=== PATIENT | female | born 1980 | race Caucasian/White ===

== ENCOUNTER 2016-10-28 08:22 | Outpatient (CLI) | payer MEDICARE, MEDICAID ==
[~2016-10-28] VITALS: Ht 157.5 cm; Wt 86.9 kg
[~2016-10-28 08:22] MED LIST: ALPR1T PO; ASP81TEC PO; BUME1TAB4 PO; CALC-250 PO; CIPR500T4 PO; CYCL10TA9 PO; DIAZ-345 PO; DILT240C PO; DIPH25TA65 PO; DOXY100C2 PO; FERR-57 PO; FURO40TA4 PO; GBPN300C PO; INSU100I14 SQ; INSU300I SQ; LEVE1U SQ; LISI20TA PO; METF750T2 PO; OMEP40CA36 PO; OXYC-12 PO; OXYC-197 PO; PRAV40TA2 PO; SULF1TAB35 PO
[2016-10-28] MEDS ORDERED: LISI10TA2 PO (08:28)
[2016-10-28] MEDS ORDERED: BETA15CR37 TP (08:28)
[2016-10-28] MEDS ORDERED: INSU100I32 SQ (08:28)
== END 2016-10-28 08:41 ==
LOC: PREOP 08:22
PROVIDERS: ATTEND Orthopaedic Surgery
DX: Z01.818 Encounter for other preprocedural examination (principal); M65.331 Trigger finger, right middle finger; M65.351 Trigger finger, right little finger

== ENCOUNTER 2016-11-03 07:21 | Day surgery (SDC) | payer MEDICARE, MEDICAID ==
--- NOTE | 2016-10-26 08:26 | HISTORY AND PHYSICAL ---
DATE OF ADMISSION: 11/03/2016 Outpatient surgery for right long finger and small finger trigger releases. HISTORY: The patient is a 36-year-old, [id number] female with complaints of right long finger and small finger catching and locking. She reports this has been progressive in nature. She cannot undergo injections due to labile blood glucose. She reported activity limitations because of the hand and due to this and failure to improve with conservative measures the patient has elected to proceed with surgical intervention. REVIEW OF SYSTEMS: No chest pain, no shortness of breath. No dysuria. PAST MEDICAL HISTORY: 1. Diabetes mellitus. 2. Hypertension. 3. Retinopathy. 4. Neuropathy. 5. Nephropathy. PAST SURGICAL HISTORY: 1. Breast reduction. 2. . 3. Eye. 4. Appendectomy. 5. Shoulder manipulation. 6. Carpal tunnel release. FAMILY HISTORY: Significant for hypertension, alcoholism, diabetes coronary artery disease. MEDICATIONS: 1. Gabapentin. 2. Pravastatin. 3. Cardizem. 4. Bumetadine. 5. Cyclobenzaprine. 6. Alprazolam. 7. NovoLog. 8. Flonase. 9. Aspirin. 10. Benadryl. ALLERGIES: HYDROCODONE SOCIAL HISTORY: The patient drinks alcohol occasionally. She denies tobacco use. PHYSICAL EXAMINATION: The patient is well-developed, well-nourished, in no acute distress. HEENT: Normocephalic, atraumatic. Pupils are equal, round, and reactive, oropharynx is clear. NECK: Supple. No lymphadenopathy. LUNGS: Clear to auscultation bilaterally. HEART: Regular rate and rhythm. ABDOMEN: Soft, nontender, nondistended. EXTREMITY EXAM: The right hand demonstrates tenderness over A1 pulleys on her right long and small fingers. She can demonstrate active triggering. She has full MCP, DIP and PIP flexion and extension. IMPRESSION: Right long finger and small finger trigger fingers. PLAN: Right long finger and small finger A1 estrella releases. The risks, benefits, options, ramifications and recovery were discussed in length with the patient and she understands and wishes to proceed. Job ID: [id number] Dictated Date: 10/25/2016 15:14:27 Rail Car Loader Date: 10/26/2016 08:16:07/vasyl
[~2016-11-03] VITALS: Ht 157.5 cm; Wt 86.9 kg
[~2016-11-03 07:21] MED LIST changes: +BETA15CR37 TP; +INSU100I32 SQ; +LISI10TA2 PO
--- NOTE | 2016-11-03 07:30 | Progress Note-Pre Operative ---
Pre-Operative Progress Note H&P Reviewed The H&P was reviewed, patient examined and no changes noted. Date Seen by Provider: Nov 03, 2016 Time Seen by Provider: : Date H&P Reviewed: Nov 03, 2016 Time H&P Reviewed: : Pre-Operative Diagnosis: right long and small finger trigger fingers JOSE M ROBINS MD Nov 03, 2016 07:30
--- NOTE | 2016-11-03 07:31 | Progress Note-Post Operative ---
Post-Operative Progess Note Surgeon (s)/Chief Digital Officer (s) Surgeon JOSE M ROBINS MD Chief Digital Officer: Jerrell Keating Pre-Operative Diagnosis right long and small finger trigger fingers Post-Operative Diagnosis right long and small finger trigger fingers Procedure & Operative Findings Date of Procedure 11/03/16 Procedure Performed/Findings right long and small finger A1 estrella releases Anesthesia Type MAC plus local Estimated Blood Loss Estimated blood loss (mL): minimal Specimens/Packing Specimens Removed none Packing: none JOSE M ROBINS MD Nov 03, 2016 07:31
[2016-11-03 07:50] VITALS: BP 121/81
[2016-11-03] MEDS ORDERED: fentaNYL INJECTION 100 MCG/2 ML AMP ONE (08:12)
[2016-11-03] MEDS ORDERED: PROPOFOL INJECTION 50 ML IV ONE (08:12)
[2016-11-03] MEDS ORDERED: MIDAZOLAM 2 MG/2 ML (VERSED) VIAL ONE (08:14)
[2016-11-03] MEDS ORDERED: FAMOTIDINE 20MG/2ML IV (PEPCID) IV ONE (08:15)
[2016-11-03] MEDS ORDERED: SCOPOLAMINE 1.5 MG (TRANSDERM-SCOP) PATCH TOP ONE (08:15)
[2016-11-03] MEDS ORDERED: ceFAZolin 1 GM/NS 50 ML IVPB IV ONE ×2 (08:15)
[2016-11-03] MEDS ORDERED: ONDANSETRON 4 MG/2 ML (SDV) Z0FRAN IV ONE (08:15)
[2016-11-03] MEDS ORDERED: BUPIVACAINE 0.5% 30 ML (SENSORCAINE) VIAL ONE (08:32)
[2016-11-03] MEDS ORDERED: LIDOCAINE 1% INJ 20 ML (XYLOCAINE) VIAL ONE (08:32)
[2016-11-03] MEDS: LACTATED RINGERS 1,000 ML IV PRN ×2 (08:44→09:04)
[2016-11-03] MEDS ORDERED: ONDANSETRON 4 MG/2 ML (SDV) Z0FRAN ONE (08:55)
[2016-11-03] MEDS ORDERED: LACTATED RINGERS 1,000 ML IV ONE (09:27)
[2016-11-03 10:05] VITALS: BP 138/78
[2016-11-03] MEDS ORDERED: OXYC-197 PO (10:12)
[2016-11-03] MEDS ORDERED: TRAM50TA2 PO (10:12)
[2016-11-03 10:35] VITALS: BP 147/67
[2016-11-03 10:45] VITALS: BP 147/67
--- NOTE | 2016-11-04 09:49 | OPERATIVE REPORT ---
PROCEDURE PHYSICIAN: JOSE M ROBINS DATE OF PROCEDURE: 11/03/2016 PREOPERATIVE DIAGNOSIS: 1. Right long finger trigger finger. 2. Right small finger trigger finger. POSTOPERATIVE DIAGNOSIS: 1. Right long finger trigger finger. 2. Right small finger trigger finger. PROCEDURES: 1. Right long finger A1 estrella release. 2. Right small finger A1 estrella release SURGEON: George UNLEAVENED DOUGH MIXER: Jerrell Keating who assisted throughout suture and closed the incision. ANESTHESIA: Monitored anesthesia care plus local by Maikel Recinos CRNA. TOURNIQUET TIME: 6 minutes at 250 mmHg. ESTIMATED BLOOD LOSS: Minimal. DRAINS: None. COMPLICATIONS: None. POSTOPERATIVE PLAN: Routine protocol. The patient was transported to the recovery room, awake, and in stable condition. STATEMENT OF MEDICAL NECESSITY: The patient is a 36-year-old, [id number] female with complaints of right long finger and small finger catching and locking. She could demonstrate active triggering. She is tender over A1 pulleys. Due to functional impairment and failure to improve with conservative measures patient elected proceed with surgical intervention. PROCEDURE: After risks and benefits of procedure were discussed and questions were answered an informed consent signed and placed on chart. The operative sites were confirmed in the preoperative holding area and initialed by the surgeon. The patient was then transferred to the operating room where after adequate levels of monitored anesthesia care were obtained, a timeout was called confirming the operative site. Under sterile conditions, the volar aspect over the A1 pulleys of the long and small fingers were infiltrated with combination of plain lidocaine and plain Marcaine. The right upper extremity was then prepped and draped in the usual sterile fashion. With the arm elevated, the tourniquet was inflated to 250 mmHg. Incisions were then made over the A1 pulleys in the long and small fingers. The underlying soft tissues were bluntly dissected exposing the A1 pulleys which were then incised longitudinally. The flexor tendons were inspected and there was fraying at the long finger but no abnormalities noted in the small finger. The fingers were taken through full range of motion with no catching or locking noted with full motion noted. The tourniquet was deflated for total tourniquet time of 6 minutes. Pressure was used for hemostasis. The wounds were copiously irrigated and closed with 4-0 nylon in simple interrupted fashion. A soft dressing was applied. The patient was transported to the recovery room, awake, in stable condition. Job ID: [id number] Dictated Date: 11/03/2016 09:32:23 Shell Reprint Operator Date: 11/04/2016 09:40:17 / vasyl
== END 2016-11-03 11:05 | disposition home or self-care (01) ==
LOC: SDC 07:21
PROVIDERS: ATTEND Orthopaedic Surgery
DX: M65.331 Trigger finger, right middle finger (principal); M65.351 Trigger finger, right little finger; E10.319 Type 1 diabetes mellitus with unspecified diabetic retinopathy without macular edema; E10.21 Type 1 diabetes mellitus with diabetic nephropathy; E10.40 Type 1 diabetes mellitus with diabetic neuropathy, unspecified; I12.9 Hypertensive chronic kidney disease with stage 1 through stage 4 chronic kidney disease, or unspecified chronic kidney disease; N18.3 Chronic kidney disease, stage 3 (moderate); Z79.899 Other long term (current) drug therapy
CPT/HCPCS: 82962; 84703; 87081

== ENCOUNTER → 2017-07-28 | Outpatient (CLI) | payer MEDICARE, MEDICAID ==
[~2017-07-28] MED LIST changes: +TRAM50TA2 PO
[2017-07-28 14:40] LABS: HEMOGLOBIN 11.2 G/DL (11.5-16.0); MEAN PLATELET VOLUME 9.1 FL (7.4-10.4); RED BLOOD COUNT 3.62 10^6/uL (4.35-5.85); RED CELL DISTRIBUTION WIDTH 12.7 % (10.0-14.5); WHITE BLOOD COUNT 11.3 10^3/uL (4.3-11.0)
[2017-07-28 14:42] LABS: BILIRUBIN,URINE NEGATIVE (NEGATIVE); CLARITY,URINE CLEAR; COLOR,URINE YELLOW; GLUCOSE, URINE (UA) NEGATIVE (NEGATIVE); KETONES,URINE NEGATIVE (NEGATIVE); LEUKOCYTE ESTERASE ,URINE NEGATIVE (NEGATIVE); NITRITE,URINE NEGATIVE (NEGATIVE); PH,URINE 6 (5-9); PROTEIN,URINE 2+ (NEGATIVE); UROBILINOGEN,URINE NORMAL (NORMAL)
[2017-07-28 14:53] LABS: BACTERIA,URINE NEGATIVE /HPF; WBC,URINE RARE /HPF
[2017-07-28 15:02] LABS: ALBUMIN 3.7 GM/DL (3.2-4.5); CALCIUM 9.3 MG/DL (8.5-10.1); CREATININE SERUM 1.06 MG/DL (0.60-1.30); MAGNESIUM 1.8 MG/DL (1.8-2.4); PHOSPHORUS 3.2 MG/DL (2.3-4.7); POTASSIUM 4.5 MMOL/L (3.6-5.0); URIC ACID 4.7 MG/DL (2.6-7.2)
== END ==
LOC: LAB 14:13
PROVIDERS: ATTEND Internal Medicine Endocrinology, Diabetes & Metabolism
DX: I12.9 Hypertensive chronic kidney disease with stage 1 through stage 4 chronic kidney disease, or unspecified chronic kidney disease (principal); N18.3 Chronic kidney disease, stage 3 (moderate); E10.65 Type 1 diabetes mellitus with hyperglycemia; E79.0 Hyperuricemia without signs of inflammatory arthritis and tophaceous disease
CPT/HCPCS: 36415; 80069; 81000; 82306; 82570; 83735; 83970; 84156; 84550; 85027

== ENCOUNTER 2018-02-23 05:31 | Outpatient (CLI) | payer MEDICARE, MEDICAID ==
[~2018-02-23] VITALS: Ht 157.5 cm; Wt 91.6 kg
[~2018-02-23 05:31] MED LIST changes: -OXYC-197 PO; +OXYC1TAB87 PO
[2018-02-23] MEDS ORDERED: iron PO (12:42)
[2018-02-23] MEDS ORDERED: ALPR1TAB7 PO (12:42)
[2018-02-23] MEDS ORDERED: CYCL10TA9 PO (12:42)
[2018-02-23] MEDS ORDERED: CHOL500044 PO (12:42)
[2018-02-23] MEDS ORDERED: DILT240C PO (12:42)
[2018-02-23] MEDS ORDERED: INSU100I14 SQ (12:42)
[2018-02-23] MEDS ORDERED: ASPI-999 PO (12:42)
[2018-02-23] MEDS ORDERED: GABA-488 PO (12:42)
[2018-02-23] MEDS ORDERED: ALLO100T PO (12:42)
== END 2018-02-23 12:48 | disposition home or self-care (01) ==
LOC: PREOP 05:31
PROVIDERS: ATTEND Orthopaedic Surgery
DX: Z01.818 Encounter for other preprocedural examination (principal)

== ENCOUNTER 2018-03-21 05:32 | Outpatient (CLI) | payer MEDICARE, MEDICAID ==
[~2018-03-21] VITALS: Ht 157.5 cm; Wt 91.6 kg
[~2018-03-21 05:32] MED LIST changes: +ALLO100T PO; +ALPR1TAB7 PO; +ASPI-999 PO; +CHOL500044 PO; +GABA-488 PO; +iron PO
== END 2018-03-21 13:45 | disposition home or self-care (01) ==
LOC: PREOP 05:32
PROVIDERS: ATTEND Orthopaedic Surgery
DX: Z01.818 Encounter for other preprocedural examination (principal)

== ENCOUNTER 2018-03-29 07:00 | Day surgery (SDC) | payer MEDICARE, MEDICAID ==
[~2018-03-29] VITALS: Ht 157.5 cm; Wt 91.6 kg
[2018-03-29] MEDS ORDERED: fentaNYL INJECTION 100 MCG/2 ML AMP ONE (07:13)
[2018-03-29] MEDS ORDERED: MIDAZOLAM 2 MG/2 ML (VERSED) VIAL ONE (07:14)
[2018-03-29 07:20] VITALS: BP 161/78
--- NOTE | 2018-03-29 07:35 | Progress Note-Pre Operative ---
Pre-Operative Progress Note H&P Reviewed The H&P was reviewed, patient examined and no changes noted. Date Seen by Provider: Mar 29, 2018 Time Seen by Provider: 07:35 Date H&P Reviewed: Mar 29, 2018 Time H&P Reviewed: 07:35 Pre-Operative Diagnosis: left shoulder adhesive capsulitis JOSE M ROBINS MD Mar 29, 2018 07:35
--- NOTE | 2018-03-29 07:36 | Progress Note-Post Operative ---
Post-Operative Progess Note Surgeon (s)/General Car Yard Supervisor (s) Surgeon JOSE M ROBINS MD General Car Yard Supervisor: Jerrell Keating Pre-Operative Diagnosis left shoulder adhesive capsulitis Post-Operative Diagnosis left shoulder adhesive capsulitis Procedure & Operative Findings Date of Procedure 03/29/18 Procedure Performed/Findings left shoulder JOEL Anesthesia Type GETA Estimated Blood Loss Estimated blood loss (mL): none Specimens/Packing Specimens Removed none Packing: none JOSE M ROBINS MD Mar 29, 2018 07:36
[2018-03-29] MEDS ORDERED: oxyCODONE/APAP 5/325MG (PERCOCET 5) TABLET PO PRN (07:45)
[2018-03-29] MEDS ORDERED: LACTATED RINGERS 1,000 ML IV PRN ×2 (07:57)
--- OUTSIDE RECORDS SUMMARY | 2018-03-29 08:19 | XMS REPORT | Continuity of Care Document ---
Author Author [facility] Organization [facility] Address Unknown Phone Unavailable Allergies Active Description Code Type Severity Reaction Onset Reported/Identified Relationship to Patient Clinical Status Yes HYDROCODONE-ACETAMINOPHEN MODERATE OTHER Yes hydrocodone [id number] Drug Allergy Mild NAUSEA 10/28/2016 Medications There is no data. 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 03/16/2012 Ot 719.41 JOINT PAIN- SHLDER 03/16/2012 Ot V57.1 PHYSICAL THERAPY NEC 09/17/2012 Ot 268.9 VITAMIN D DEFICIENCY NOS 09/17/2012 Ot 362.01 DIABETIC RETINOPATHY NOS 09/17/2012 Ot 403.90 HYPTNSV CHR KID DIS, UNSPEC, W CHR KD ST 09/17/2012 Ot 583.81 NEPHRITIS NOS IN OTH DIS 09/17/2012 Ot 585.1 CHRONIC KIDNEY DISEASE, STAGE I 10/25/2012 SIHMON MCKNIGHT, JOSE M Palmer Ot 250.00 DIAB SHAYAN WO COMPL, TYPE II OR UNSPEC TY 10/25/2012 SHIMON MCKNIGHT, JOSE M Palmer Ot 401.9 HYPERTENSION NOS 10/25/2012 JOSE M ROBINS MD Ot 726.0 ADHESIVE CAPSULIT SHLDER 10/25/2012 JOSE M ROBINS MD Ot V58.69 OT MED,LT,CURRENT USE 01/24/2013 NATACHA MATTSON Ot 726.0 ADHESIVE CAPSULIT SHLDER 01/24/2013 NATACHA MATTSON Ot V57.1 PHYSICAL THERAPY NEC 02/26/2014 JOSE M ROBINS MD Ot 719.45 JOINT PAIN-PELVIS 02/26/2014 JOSE M ROBINS MD Ot V57.1 PHYSICAL THERAPY NEC 03/19/2014 RELL PATEL DO Ot 250.03 04/02/2014 JORGE WALKER RELL Elly Ot 250.53 DIAB W OPHTHAL MANIFEST, TYPE I [JUVENIL 04/02/2014 PATEL DO RELL Elly Ot 250.63 DIAB W NEURO MANIFEST, TYPE I [JUVENILE 04/02/2014 JORGE WALKER RELL L Ot 357.2 NEUROPATHY IN DIABETES 04/02/2014 PATEL DO RELL L Ot 362.01 DIABETIC RETINOPATHY NOS 05/03/2014 Ot 959.2 05/03/2014 Ot E000.8 05/03/2014 Ot E849.0 05/03/2014 Ot E888.9 05/03/2014 Ot 250.01 05/03/2014 Ot 701.2 05/03/2014 Ot 719.41 05/03/2014 Ot V58.69 05/03/2014 Ot 250.01 05/03/2014 Ot 251.1 05/03/2014 Ot 288.60 05/03/2014 Ot 790.6 05/03/2014 SHIMON MCKNIGHT, JOSE M P Ot 726.0 05/03/2014 SHIMON MCKNIGHT, JOSE M P Ot V72.63 05/03/2014 SHIMON MCKNIGHT, JOSE M P Ot V74.8 05/03/2014 SHAIKH ROXANNA, JUAN Ot 250.40 05/03/2014 SHAIKH ROXANNA, JUAN Ot 250.50 05/03/2014 SHAIKH ROXANNA, JUAN Ot 268.9 05/03/2014 SHAIKH ROXANNA, JUAN Ot 285.8 05/03/2014 SHAIKH ROXANNA, JUAN Ot 362.01 05/03/2014 SHAIKH ROXANNA, JUAN Ot 401.9 05/03/2014 SHAIKH ROXANNA, JUAN Ot 583.81 05/03/2014 SHAIKH ROXANNA, JUAN Ot 588.81 05/03/2014 SHAIKH ROXANNA, JUAN Ot 791.0 05/03/2014 MISSAEL YUEN CENTER DIRECTOR Ot 250.00 05/03/2014 MISSAEL YUEN CENTER DIRECTOR Ot 266.2 05/03/2014 MISSAEL YUEN CENTER DIRECTOR Ot 275.2 05/03/2014 SANDRA YUEN DO Ot 719.45 05/03/2014 SANDRA YUEN DO Ot 724.2 05/03/2014 YUEN DO, SANDRA Villafana Ot 729.5 05/03/2014 SHIMON MCKNIGHT, JOSE M P Ot 726.12 05/03/2014 SHIMON MCKNIGHT, JOSE M P Ot 840.7 05/03/2014 SHIMON MCKNIGHT, JOSE M P Ot E928.9 05/03/2014 PATEL DO, RELL L Ot 250.03 05/03/2014 PATEL DO, RELL L Ot 250.53 05/03/2014 PATEL DO, RELL L Ot 250.63 05/03/2014 PATEL DO, RELL L Ot 357.2 05/03/2014 PATEL DO, RELL L Ot 362.01 05/24/2014 SHAIKH ROXANNA, JUAN Ot 250.40 05/24/2014 SHAIKH ROXANNA, JUAN Ot 268.9 05/24/2014 SHAIKH ROXANNA, JUAN Ot 278.00 05/24/2014 SHAIKH ROXANNA, JUAN Ot 280.9 05/24/2014 SHAIKH ROXANNA, JUAN Ot 403.10 05/24/2014 SHAIKH ROXANNA, JUAN Ot 583.81 05/24/2014 SHAIKH ROXANNA, JUAN Ot 585.3 05/24/2014 SHAIKH ROXANNA, JUAN Ot 782.3 05/24/2014 SHAIKH ROXANNA, JUAN Ot 791.0 10/24/2014 PATEL DO, RELL L Ot 250.03 11/01/2014 YUEN DO, SANDRA J Ot 250.01 11/01/2014 YUEN DO, SANDRA J Ot 285.9 11/01/2014 YUEN DO, SANDRA Villafana Ot 564.1 11/01/2014 YUEN DO, SANDRA Villafana Ot 780.79 11/01/2014 YUEN DO, SANDRA Villafana Ot 782.3 11/04/2014 PATEL DO, RELL L Ot 250.03 11/11/2014 YUEN DO, SANDRA J Ot 250.01 11/11/2014 YUEN DO, SANDRA Villafana Ot 285.9 11/11/2014 YUEN DO, SANDRA Villafana Ot 564.1 11/11/2014 YUEN DO, SANDRA Villafana Ot 780.79 11/11/2014 YUEN DO, SANDRA Villafana Ot 782.3 03/10/2016 Ot 959.2 SHLDR/UPPER ARM INJ NOS 03/10/2016 Ot E000.8 OTHER EXTERNAL CAUSE STATUS 03/10/2016 Ot E849.0 ACCIDENT IN HOME 03/10/2016 Ot E888.9 FALL NOS 03/10/2016 Ot 250.01 DIAB SHAYAN WO COMPL, TYPE I [JUVENILE TYP 03/10/2016 Ot 701.2 ACQ ACANTHOSIS NIGRICANS 03/10/2016 Ot 719.41 JOINT PAIN- SHLDER 03/10/2016 Ot V58.69 OTH MED,LT, CURRENT USE 03/10/2016 Ot 250.01 DIAB SHAYAN WO COMPL, TYPE I [JUVENILE TYP 03/10/2016 Ot 251.1 HYPOGLYCEMIA NEC 03/10/2016 Ot 288.60 LEUKOCYTOSIS , UNSPECIFIED 03/10/2016 Ot 790.6 ABN BLOOD CHEMISTRY NEC 03/10/2016 SHIMON MCKNIGHT, JOSE M Palmer Ot 726.0 ADHESIVE CAPSULIT SHLDER 03/10/2016 SHIMON MCKNIGHT, JOSE M Palmer Ot V72.63 PRE-PROCEDURAL LABORATORY EXAMINATION 03/10/2016 SHIMON MCKNIGHT, JOSE M Palmer Ot V74.8 SCREEN-BACTERIAL DIS NEC 03/10/2016 SHAIKH ROXANNA, JUAN Ot 250.40 DIAB W RENAL MANIFEST, TYPE II OR UNSPEC 03/10/2016 SHAIKH ROXANNA, JUAN Ot 250.50 DIAB W OPHTHAL MANIFEST, TYPE II OR UNSP 03/10/2016 SHAIKH ROXANNA, JUAN Ot 268.9 VITAMIN D DEFICIENCY NOS 03/10/2016 SHAIKH ROXANNA, JUAN Ot 285.8 ANEMIA NEC 03/10/2016 SHAIKH ROXANNA, JUAN Ot 362.01 DIABETIC RETINOPATHY NOS 03/10/2016 SHAIKH ROXANNA, JUAN Ot 401.9 HYPERTENSION NOS 03/10/2016 SHAIKH ROXANNA, JUAN Ot 583.81 NEPHRITIS NOS IN OTH DIS 03/10/2016 SHAIKH ROXANNA, JUAN Ot 588.81 SECONDARY HYPERPARATHYROIDISM (OF RENAL 03/10/2016 SHAIKH ROXANNA, JUAN Ot 791.0 PROTEINURIA 03/10/2016 MISSAEL YUEN CENTER DIRECTOR Ot 250.00 DIAB SHAYAN WO COMPL, TYPE II OR UNSPEC TY 03/10/2016 MISSAEL YUEN CENTER DIRECTOR Ot 266.2 B-COMPLEX DEFIC NEC 03/10/2016 MISSAEL YUEN CENTER DIRECTOR Ot 275.2 DIS MAGNESIUM METABOLISM 03/10/2016 SANDRA YUEN DO Ot 719.45 JOINT PAIN-PELVIS 03/10/2016 SANDRA YUEN DO Ot 724.2 LUMBAGO 03/10/2016 SANDRA YUEN DO Ot 729.5 PAIN IN LIMB 03/10/2016 JOSE M ROBINS MD Ot 726.12 BICIPITAL TENOSYNOVITIS 03/10/2016 JOSE M ROBINS MD Ot 840.7 (SLAP) SUPERIOR GLENOID LABRUM LESIONS 03/10/2016 OJSE M ROBINS MD Ot E928.9 ACCIDENT NOS 03/10/2016 RELL PATEL DO Ot 250.03 DIAB SHAYAN WO COMPL, TYPE I [JUVENILE TYP 03/10/2016 RELL PATEL DO Ot 250.53 DIAB W OPHTHAL MANIFEST, TYPE I [JUVENIL 03/10/2016 RELL PATEL DO Ot 250.63 DIAB W NEURO MANIFEST, TYPE I [JUVENILE 03/10/2016 RELL PATEL DO Ot 357.2 NEUROPATHY IN DIABETES 03/10/2016 RELL PATEL DO Ot 362.01 DIABETIC RETINOPATHY NOS 03/10/2016 SHAIKH ROXANNA, JUAN Ot 250.40 DIAB W RENAL MANIFEST, TYPE II OR UNSPEC 03/10/2016 SHAIKH ROXANNA, JUAN Ot 268.9 VITAMIN D DEFICIENCY NOS 03/10/2016 SHAIKH ROXANNA, JUAN Ot 278.00 OBESITY, NOS 03/10/2016 SHAIKH ROXANNA, JUAN Ot 280.9 IRON DEFIC ANEMIA NOS 03/10/2016 SHAIKH ROXANNA, JUAN Ot 403.10 HYPTNSV CHR KID DIS, BENIGN, W CHR KD ST 03/10/2016 SHAIKH ROXANNA, JUAN Ot 583.81 NEPHRITIS NOS IN OTH DIS 03/10/2016 SHAIKH ROXANNA, JUAN Ot 585.3 CHRONIC KIDNEY DISEASE, STAGE III (MODER 03/10/2016 SHAIKH ROXANNA, JUAN Ot 782.3 EDEMA 03/10/2016 SHAIKH ROXANNA, JUAN Ot 791.0 PROTEINURIA 03/10/2016 RELL PATEL DO Ot 250.03 DIAB SHAYAN WO COMPL, TYPE I [JUVENILE TYP 03/10/2016 SANDRA YUEN DO Ot 250.01 DIAB SHAYAN WO COMPL, TYPE I [JUVENILE TYP 03/10/2016 SANDRA YUEN DO Ot 285.9 ANEMIA NOS 03/10/2016 SANDRA YUEN DO Ot 564.1 IRRITABLE BOWEL SYNDROME 03/10/2016 SANDRA YUEN DO Ot 780.79 OTH MALAISE FATIGUE 03/10/2016 SANDRA YUEN DO Ot 782.3 EDEMA 03/10/2016 JOSE M ROBINS MD Ot G56.01 CARPAL TUNNEL SYNDROME, RIGHT UPPER LIMB 03/10/2016 JOSE M ROBINS MD Ot Z01.818 ENCOUNTER FOR OTHER PREPROCEDURAL EXAMIN 03/10/2016 JOSE M ROBINS MD Ot Z11.2 ENCOUNTER FOR SCREENING FOR OTHER BACTER 03/11/2016 JOSE M ROBINS MD Ot G56.01 CARPAL TUNNEL SYNDROME, RIGHT UPPER LIMB 03/11/2016 JOSE M ROBINS MD Ot Z01.818 ENCOUNTER FOR OTHER PREPROCEDURAL EXAMIN 03/11/2016 JOSE M ROBINS MD Ot Z11.2 ENCOUNTER FOR SCREENING FOR OTHER BACTER 03/17/2016 JOSE M ROBINS MD Ot E11.9 TYPE 2 DIABETES MELLITUS WITHOUT COMPLIC 03/17/2016 JOSE M ROBINS MD Ot G56.01 CARPAL TUNNEL SYNDROME, RIGHT UPPER LIMB 03/17/2016 JOSE M ROBINS MD Ot I10 ESSENTIAL (PRIMARY) HYPERTENSION 03/17/2016 JOSE M ROBINS MD Ot Z79.899 OTHER PENITENTIARY (CURRENT) DRUG THERAPY 03/22/2016 LASHAY STEIN Ot E11.9 TYPE 2 DIABETES MELLITUS WITHOUT COMPLIC 03/22/2016 LASHAY STEIN Ot I10 ESSENTIAL (PRIMARY) HYPERTENSION 03/22/2016 LASHAY STEIN Ot L03.115 CELLULITIS OF RIGHT LOWER LIMB 03/22/2016 LASHAY STEIN Ot M25.571 PAIN IN RIGHT ANKLE AND JOINTS OF RIGHT 03/22/2016 LASHAY STEIN Ot Z79.4 PENITENTIARY (CURRENT) USE OF INSULIN 03/22/2016 LASHAY STEIN Ot Z79.82 PENITENTIARY (CURRENT) USE OF ASPIRIN 03/22/2016 LASHAY STEIN Ot Z79.899 OTHER MEDICAL LIAISON (CURRENT) DRUG THERAPY 03/24/2016 LASHAY STEIN Ot E11.9 TYPE 2 DIABETES MELLITUS WITHOUT COMPLIC 03/24/2016 LASHAY STEIN Ot I10 ESSENTIAL (PRIMARY) HYPERTENSION 03/24/2016 LASHAY STEIN Ot L03.115 CELLULITIS OF RIGHT LOWER LIMB 03/24/2016 LASHAY STEIN L Ot M25.571 PAIN IN RIGHT ANKLE AND JOINTS OF RIGHT 03/24/2016 LASHAY STEIN Ot Z79.4 MEDICAL LIAISON (CURRENT) USE OF INSULIN 03/24/2016 LASHAY STEIN Ot Z79.82 PENITENTIARY (CURRENT) USE OF ASPIRIN 03/24/2016 LASHAY STEIN Ot Z79.899 OTHER PENITENTIARY (CURRENT) DRUG THERAPY 03/24/2016 LASHAY STEIN Ot E11.9 TYPE 2 DIABETES MELLITUS WITHOUT COMPLIC 03/24/2016 LASHAY STEIN Ot I10 ESSENTIAL (PRIMARY) HYPERTENSION 03/24/2016 LASHAY STEIN Ot L03.115 CELLULITIS OF RIGHT LOWER LIMB 03/24/2016 LASHAY STEIN Ot M25.571 PAIN IN RIGHT ANKLE AND JOINTS OF RIGHT 03/24/2016 LASHAY STEIN Ot Z79.4 MEDICAL LIAISON (CURRENT) USE OF INSULIN 03/24/2016 LASHAY STEIN Ot Z79.82 MEDICAL LIAISON (CURRENT) USE OF ASPIRIN 03/24/2016 LASHAY STEIN Ot Z79.899 OTHER MEDICAL LIAISON (CURRENT) DRUG THERAPY 10/28/2016 RELL PATEL DO Ot 250.53 DIAB W OPHTHAL MANIFEST, TYPE I [JUVENIL 10/28/2016 RELL PATEL DO Ot 250.63 DIAB W NEURO MANIFEST, TYPE I [JUVENILE 10/28/2016 RELL PATEL DO Ot 357.2 NEUROPATHY IN DIABETES 10/28/2016 RELL PATEL DO Ot 362.01 DIABETIC RETINOPATHY NOS 10/28/2016 SHIMON MCKNIGHT, JOSE M Palmer Ot M65.331 TRIGGER FINGER, RIGHT MIDDLE FINGER 10/28/2016 SHIMON MCKNIGHT, JOSE M Palmer Ot M65.351 TRIGGER FINGER, RIGHT LITTLE FINGER 10/28/2016 SHIMON MCKNIGHT, JOSE M Palmer Ot Z01.818 ENCOUNTER FOR OTHER PREPROCEDURAL EXAMIN 10/29/2016 JOSE M ROBINS MD Ot M65.331 TRIGGER FINGER, RIGHT MIDDLE FINGER 10/29/2016 JOSE M ROBINS MD Ot M65.351 TRIGGER FINGER, RIGHT LITTLE FINGER 10/29/2016 JOSE M ROBINS MD Ot Z01.818 ENCOUNTER FOR OTHER PREPROCEDURAL EXAMIN 11/03/2016 JOSE M ROBINS MD Ot E10.21 TYPE 1 DIABETES MELLITUS WITH DIABETIC N 11/03/2016 JOSE M ROBINS MD Ot E10.319 TYPE 1 DIABETES W UNSP DIABETIC RTNOP W11/03/2016 JOSE M ROBINS MD Ot E10.40 TYPE 1 DIABETES MELLITUS WITH DIABETIC N 11/03/2016 JOSE M ROBINS MD Ot I12.9 HYPERTENSIVE CHRONIC KIDNEY DISEASE W ST 11/03/2016 JOSE M ROBINS MD Ot M65.331 TRIGGER FINGER, RIGHT MIDDLE FINGER 11/03/2016 JOSE M ROBISN MD Ot M65.351 TRIGGER FINGER, RIGHT LITTLE FINGER 11/03/2016 JOSE M ROBINS MD Ot N18.3 CHRONIC KIDNEY DISEASE, STAGE 3 (MODERAT 11/03/2016 JOSE M ROBINS MD Ot Z79.899 OTHER PENITENTIARY (CURRENT) DRUG THERAPY 11/04/2016 JOSE M ROBINS MD Ot E10.21 TYPE 1 DIABETES MELLITUS WITH DIABETIC N 11/04/2016 JOSE M ROBINS MD Ot E10.319 TYPE 1 DIABETES W UNSP DIABETIC RTNOP W11/04/2016 JOSE M ROBINS MD Ot E10.40 TYPE 1 DIABETES MELLITUS WITH DIABETIC N 11/04/2016 JOSE M ROBINS MD Ot I12.9 HYPERTENSIVE CHRONIC KIDNEY DISEASE W ST 11/04/2016 JOSE M ROBINS MD Ot M65.331 TRIGGER FINGER, RIGHT MIDDLE FINGER 11/04/2016 JOSE M ROBINS MD Ot M65.351 TRIGGER FINGER, RIGHT LITTLE FINGER 11/04/2016 JOSE M ROBINS MD Ot N18.3 CHRONIC KIDNEY DISEASE, STAGE 3 (MODERAT 11/04/2016 JOSE M ROBINS MD Ot Z79.899 OTHER MEDICAL LIAISON (CURRENT) DRUG THERAPY 11/15/2016 JOSE M ROBINS MD Ot E10.21 TYPE 1 DIABETES MELLITUS WITH DIABETIC N 11/15/2016 JOSE M ROBINS MD Ot E10.319 TYPE 1 DIABETES W UNSP DIABETIC RTNOP W/ 11/15/2016 JOSE M ROBINS MD Ot E10.40 TYPE 1 DIABETES MELLITUS WITH DIABETIC N 11/15/2016 JOSE M ROBINS MD Ot I12.9 HYPERTENSIVE CHRONIC KIDNEY DISEASE W ST 11/15/2016 JOSE M ROBINS MD Ot M65.331 TRIGGER FINGER, RIGHT MIDDLE FINGER 11/15/2016 JOSE M ROBINS MD Ot M65.351 TRIGGER FINGER, RIGHT LITTLE FINGER 11/15/2016 JOSE M ROBINS MD Ot N18.3 CHRONIC KIDNEY DISEASE, STAGE 3 (MODERAT 11/15/2016 JOSE M ROBINS MD Ot Z79.899 OTHER PENITENTIARY (CURRENT) DRUG THERAPY 02/18/2017 JUAN CARLOS EMERYP Ot E11.9 TYPE 2 DIABETES MELLITUS WITHOUT COMPLIC 02/18/2017 JUAN CARLOS EMERYP Ot E66.9 OBESITY, UNSPECIFIED 02/18/2017 JUAN CARLOS EMERYP Ot E78.5 HYPERLIPIDEMIA, UNSPECIFIED 03/08/2017 GLENYS KHAN MD R Ot E10.65 TYPE 1 DIABETES MELLITUS WITH HYPERGLYCE 03/08/2017 GLENYS KHAN MD R Ot E88.9 METABOLIC DISORDER, UNSPECIFIED 03/08/2017 GLENYS KHAN MD R Ot I12.9 HYPERTENSIVE CHRONIC KIDNEY DISEASE W ST 03/08/2017 GLENYS KHAN MD R Ot N18.3 CHRONIC KIDNEY DISEASE, STAGE 3 (MODERAT 03/11/2017 GLENYS KHAN MD R Ot E10.65 TYPE 1 DIABETES MELLITUS WITH HYPERGLYCE 03/11/2017 GLENYS KHAN MD R Ot E88.9 METABOLIC DISORDER, UNSPECIFIED 03/11/2017 GLENYS KHAN MD R Ot I12.9 HYPERTENSIVE CHRONIC KIDNEY DISEASE W ST 03/11/2017 GLENYS KHAN MD R Ot N18.3 CHRONIC KIDNEY DISEASE, STAGE 3 (MODERAT 03/14/2017 JUAN CARLOS EMERYP Ot E11.9 TYPE 2 DIABETES MELLITUS WITHOUT COMPLIC 03/14/2017 JUAN CARLOS EMERYP Ot E66.9 OBESITY, UNSPECIFIED 03/14/2017 JUAN CARLOS EMERYP Ot E78.5 HYPERLIPIDEMIA, UNSPECIFIED 03/14/2017 ERIN MCKNIGHT, GLENYS Boyce Ot D64.9 ANEMIA, UNSPECIFIED 03/18/2017 YULYJUAN CARLOS SHAVONNE Ot E11.9 TYPE 2 DIABETES MELLITUS WITHOUT COMPLIC 03/18/2017 YULY JUAN CARLOS Rico CENTER DIRECTOR Ot E66.9 OBESITY, UNSPECIFIED 03/18/2017 YULY JUAN CARLOS Rico SHAVONNE Ot E78.5 HYPERLIPIDEMIA, UNSPECIFIED 03/18/2017 ERIN MCKNIGHT, GLENYS R Ot D64.9 ANEMIA, UNSPECIFIED 04/18/2017 Capellan, Buffy-James W 527.2 SIALOADENITIS 04/18/2017 Capellan, Buffy-James W K11.20 SIALOADENITIS, UNSPECIFIED 04/18/2017 Capellan, Buffy-James W 527.2 SIALOADENITIS 04/18/2017 Capellan, Buffy-James W K11.20 SIALOADENITIS, UNSPECIFIED 07/29/2017 PATEL DO, RELL L Ot E10.65 TYPE 1 DIABETES MELLITUS WITH HYPERGLYCE 07/29/2017 PATEL DO, RELL L Ot E79.0 HYPERURICEMIA W/O SIGNS OF INFLAM ARTHRI 07/29/2017 PATEL DO, RELL L Ot I12.9 HYPERTENSIVE CHRONIC KIDNEY DISEASE W ST 07/29/2017 PATEL DO, RELL L Ot N18.3 CHRONIC KIDNEY DISEASE, STAGE 3 (MODERAT 08/18/2017 PATEL DO, RELL L Ot E10.65 TYPE 1 DIABETES MELLITUS WITH HYPERGLYCE 08/18/2017 PATEL DO, RELL L Ot E79.0 HYPERURICEMIA W/O SIGNS OF INFLAM ARTHRI 08/18/2017 PATEL DO, RELL L Ot I12.9 HYPERTENSIVE CHRONIC KIDNEY DISEASE W ST 08/18/2017 PATEL DO, RELL L Ot N18.3 CHRONIC KIDNEY DISEASE, STAGE 3 (MODERAT 08/26/2017 PATEL DO, RELL L Ot E10.65 TYPE 1 DIABETES MELLITUS WITH HYPERGLYCE 08/26/2017 PATEL DO, RELL L Ot E79.0 HYPERURICEMIA W/O SIGNS OF INFLAM ARTHRI 08/26/2017 PATEL DO, RELL L Ot I12.9 HYPERTENSIVE CHRONIC KIDNEY DISEASE W ST 08/26/2017 PATEL DO, RELL L Ot N18.3 CHRONIC KIDNEY DISEASE, STAGE 3 (MODERAT 02/23/2018 JOSE M ROBINS MD Ot Z01.818 ENCOUNTER FOR OTHER PREPROCEDURAL EXAMIN 03/01/2018 JOSE M ROBINS MD Ot Z01.818 ENCOUNTER FOR OTHER PREPROCEDURAL EXAMIN 03/07/2018 JOSE M ROBINS MD Ot 726.0 ADHESIVE CAPSULIT SHLDER 03/07/2018 JOSE M ROBINS MD Ot V72.63 PRE-PROCEDURAL LABORATORY EXAMINATION 03/07/2018 JOSE M ROBINS MD Ot V74.8 SCREEN-BACTERIAL DIS NEC 03/07/2018 SHAIKH ROXANNA, JUAN Ot 250.40 DIAB W RENAL MANIFEST, TYPE II OR UNSPEC 03/07/2018 JUAN ROLLE MD Ot 250.50 DIAB W OPHTHAL MANIFEST, TYPE II OR UNSP 03/07/2018 SHAIKH ROXANNA, JUAN Ot 268.9 VITAMIN D DEFICIENCY NOS 03/07/2018 SHAIKH ROXANNA, JUAN Ot 285.8 ANEMIA NEC 03/07/2018 SHAIKH ROXANNA, JUAN Ot 362.01 DIABETIC RETINOPATHY NOS 03/07/2018 SHAIKH ROXANNA, JUAN Ot 401.9 HYPERTENSION NOS 03/07/2018 SHAIKH ROXANNA, JUAN Ot 583.81 NEPHRITIS NOS IN OTH DIS 03/07/2018 SHAIKH ROXANNA, JUAN Ot 588.81 SECONDARY HYPERPARATHYROIDISM (OF RENAL 03/07/2018 SHAIKH ROXANNA, JUAN Ot 791.0 PROTEINURIA 03/07/2018 MISSAEL YUEN CENTER DIRECTOR Ot 250.00 DIAB SHAYAN WO COMPL, TYPE II OR UNSPEC TY 03/07/2018 MISSAEL YUEN CENTER DIRECTOR Ot 266.2 B-COMPLEX DEFIC NEC 03/07/2018 MISSAEL YUEN CENTER DIRECTOR Ot 275.2 DIS MAGNESIUM METABOLISM 03/07/2018 SANDRA YUEN DO Ot 719.45 JOINT PAIN-PELVIS 03/07/2018 SANDRA YUEN DO Ot 724.2 LUMBAGO 03/07/2018 SANDRA YUEN DO Ot 729.5 PAIN IN LIMB 03/07/2018 JOSE M ROIBNS MD Ot 726.12 BICIPITAL TENOSYNOVITIS 03/07/2018 JOSE M ROBISN MD Ot 840.7 (SLAP) SUPERIOR GLENOID LABRUM LESIONS 03/07/2018 SHIMON MCKNIGHT, JOSE M Palmer Ot E928.9 ACCIDENT NOS 03/07/2018 PATEL , RELL L Ot 250.03 DIAB SHAYAN WO COMPL, TYPE I [JUVENILE TYP 03/07/2018 PATEL DO, RELL L Ot 250.53 DIAB W OPHTHAL MANIFEST, TYPE I [JUVENIL 03/07/2018 PATEL , RELL L Ot 250.63 DIAB W NEURO MANIFEST, TYPE I [JUVENILE 03/07/2018 PATEL , RELL L Ot 357.2 NEUROPATHY IN DIABETES 03/07/2018 PATEL , RELL L Ot 362.01 DIABETIC RETINOPATHY NOS 03/07/2018 SHAIKH ROXANNA, JUAN Ot 250.40 DIAB W RENAL MANIFEST, TYPE II OR UNSPEC 03/07/2018 SHAIKH ROXANNA, JUAN Ot 268.9 VITAMIN D DEFICIENCY NOS 03/07/2018 SHAIKH ROXANNA, JUAN Ot 278.00 OBESITY, NOS 03/07/2018 SHAIKH ROXANNA, JUAN Ot 280.9 IRON DEFIC ANEMIA NOS 03/07/2018 SHAIKH ROXANNA, JUAN Ot 403.10 HYPTNSV CHR KID DIS, BENIGN, W CHR KD ST 03/07/2018 SHAIKH ROXANNA, JUAN Ot 583.81 NEPHRITIS NOS IN OTH DIS 03/07/2018 SHAIKH ROXANNA, JUAN Ot 585.3 CHRONIC KIDNEY DISEASE, STAGE III (MODER 03/07/2018 SHAIKH ROXANNA, JUAN Ot 782.3 EDEMA 03/07/2018 SHAIKH ROXANNA, JUAN Ot 791.0 PROTEINURIA 03/07/2018 JORGE WALKER, RELL L Ot 250.03 DIAB SHAYAN WO COMPL, TYPE I [JUVENILE TYP 03/07/2018 SANDRA YEUN DO Ot 250.01 DIAB SHAYAN WO COMPL, TYPE I [JUVENILE TYP 03/07/2018 SANDRA YUEN DO Ot 285.9 ANEMIA NOS 03/07/2018 SANDRA YUEN DO Ot 564.1 IRRITABLE BOWEL SYNDROME 03/07/2018 SANDRA YUEN DO Ot 780.79 OTH MALAISE FATIGUE 03/07/2018 SANDRA YUEN DO Ot 782.3 EDEMA 03/07/2018 ERIN MCKNIGHT, GLENYS Boyce Ot E10.65 TYPE 1 DIABETES MELLITUS WITH HYPERGLYCE 03/07/2018 ERIN MCKNIGHT, GLENYS R Ot E88.9 METABOLIC DISORDER, UNSPECIFIED 03/07/2018 ERIN MCKNIGHT, GLENYS R Ot I12.9 HYPERTENSIVE CHRONIC KIDNEY DISEASE W ST 03/07/2018 ERIN MCKNIGHT, GLENYS R Ot N18.3 CHRONIC KIDNEY DISEASE, STAGE 3 (MODERAT 03/07/2018 YULY, JUAN CARLOS H CENTER DIRECTOR Ot E11.9 TYPE 2 DIABETES MELLITUS WITHOUT COMPLIC 03/07/2018 YULY, JUAN CARLOS H CENTER DIRECTOR Ot E66.9 OBESITY, UNSPECIFIED 03/07/2018 YULY, JUAN CARLOS H CENTER DIRECTOR Ot E78.5 HYPERLIPIDEMIA, UNSPECIFIED 03/07/2018 ERIN MCKNIGHT, GLENYS Boyce Ot D64.9 ANEMIA, UNSPECIFIED 03/07/2018 PATEL DO, RELL L Ot E10.65 TYPE 1 DIABETES MELLITUS WITH HYPERGLYCE 03/07/2018 PATEL DO, RELL L Ot E79.0 HYPERURICEMIA W/O SIGNS OF INFLAM ARTHRI 03/07/2018 PATEL DO, RELL L Ot I12.9 HYPERTENSIVE CHRONIC KIDNEY DISEASE W ST 03/07/2018 PATEL DO, RELL L Ot N18.3 CHRONIC KIDNEY DISEASE, STAGE 3 (MODERAT 03/21/2018 SHIMON MCKNIGHT, JOSE M Palmer Ot Z01.818 ENCOUNTER FOR OTHER PREPROCEDURAL EXAMIN 03/22/2018 JOSE M ROBINS MD, Ot Z01.818 ENCOUNTER FOR OTHER PREPROCEDURAL EXAMIN Procedures There is no data. Results Test Result Range Methicillin resistant Staphylococcus aureus (MRSA) screening culture - 09:22 MRSA SCREEN RESULT MRSA ISOLATED NRG Urine beta human chorionic gonadotropin (hCG) measurement - 03/17/16 06:10 Urine beta human chorionic gonadotropin (hCG) measurement NEGATIVE NEGATIVE Capillary blood glucose measurement by glucometer (mass/volume) - 03/17/16 06: 19 Capillary blood glucose measurement by glucometer (mass/volume) 382 mg/dL 70-110 Capillary blood glucose measurement by glucometer (mass/volume) - 03/17/16 07: 06 Capillary blood glucose measurement by glucometer (mass/volume) 375 mg/dL 70-110 Capillary blood glucose measurement by glucometer (mass/volume) - 03/17/16 08: 13 Capillary blood glucose measurement by glucometer (mass/volume) 125 mg/dL 70-110 Complete blood count (CBC) with automated white blood cell (WBC) differential - 03/22/16 11:50 Blood leukocytes automated count (number/volume) 15.4 10*3/uL 4.3-11.0 Blood erythrocytes automated count (number/volume) 3.74 10*6/uL 4.35-5.85 Venous blood hemoglobin measurement (mass/volume) 11.3 g/dL 11.5-16.0 Blood hematocrit (volume fraction) 33 % 35-52 Automated erythrocyte mean corpuscular volume 89 [foz_us] 80-99 Automated erythrocyte mean corpuscular hemoglobin (mass per erythrocyte) 30 pg 25-34 Automated erythrocyte mean corpuscular hemoglobin concentration measurement ( mass/volume) 34 g/dL 32-36 Automated erythrocyte distribution width ratio 11.7 % 10.0-14.5 Automated blood platelet count (count/volume) 544 10*3/uL 130-400 Automated blood platelet mean volume measurement 9.3 [foz_us] 7.4-10.4 Automated blood neutrophils/100 leukocytes 77 % 42-75 Automated blood lymphocytes/100 leukocytes 15 % 12-44 Blood monocytes/100 leukocytes 5 % 0-12 Automated blood eosinophils/100 leukocytes 3 % 0-10 Automated blood basophils/100 leukocytes 1 % 0-10 Blood neutrophils automated count (number/volume) 11.9 10*3 1.8-7.8 Blood lymphocytes automated count (number/volume) 2.2 10*3 1.0-4.0 Blood monocytes automated count (number/volume) 0.8 10*3 0.0-1.0 Automated eosinophil count 0.5 10*3/uL 0.0-0.3 Automated blood basophil count (count/volume) 0.1 10*3/uL 0.0-0.1 Blood manual differential performed detection - 03/22/16 11:50 Blood monocytes/100 leukocytes 5 % NRG Manual blood segmented neutrophils/100 leukocytes 74 % NRG Blood band neutrophils/100 leukocytes 0 % NRG Manual blood lymphocytes/100 leukocytes 8 % NRG Manual eosinophils/100 leukocytes in nose 4 % NRG Manual blood basophils/100 leukocytes 2 % NRG Blood lymphocytes variant/100 leukocytes 7 % NRG Blood erythrocyte morphology finding identification NORMAL NRG Erythrocyte sedimentation rate by westergren method - 03/22/16 11:50 Erythrocyte sedimentation rate by westergren method > mm 0-20 Comprehensive metabolic panel - 03/22/16 11:50 Serum or plasma sodium measurement (moles/volume) 136 mmol/L 135-145 Serum or plasma potassium measurement (moles/volume) 4.7 mmol/L 3.6-5.0 Serum or plasma chloride measurement (moles/volume) 101 mmol/L 98-107 Carbon dioxide 24 mmol/L 21-32 Serum or plasma anion gap determination (moles/volume) 11 mmol/L 5-14 Serum or plasma urea nitrogen measurement (mass/volume) 21 mg/dL 7-18 Serum or plasma creatinine measurement (mass/volume) 1.50 mg/dL 0.60-1.30 Serum or plasma urea nitrogen/creatinine mass ratio 14 NRG Serum or plasma creatinine measurement with calculation of estimated glomerular filtration rate 39 NRG Serum or plasma glucose measurement (mass/volume) 261 mg/dL 70-105 Serum or plasma calcium measurement (mass/volume) 9.5 mg/dL 8.5-10.1 Serum or plasma total bilirubin measurement (mass/volume) 0.3 mg/dL 0.1-1.0 Serum or plasma alkaline phosphatase measurement (enzymatic activity/volume) 164 U/L 40-136 Serum or plasma aspartate aminotransferase measurement (enzymatic activity/ volume) 14 U/L 5-34 Serum or plasma alanine aminotransferase measurement (enzymatic activity/volume ) 15 U/L 0-55 Serum or plasma protein measurement (mass/volume) 7.2 g/dL 6.4-8.2 Serum or plasma albumin measurement (mass/volume) 3.4 g/dL 3.2-4.5 Serum or plasma C reactive protein measurement (mass/volume) - 03/22/16 11:50 Serum or plasma C reactive protein measurement (mass/volume) 5.77 mg /dL 0.00-0.50 BMP - 03/29/16 10:32 Anion Gap 17 6-14 BUN 24 mg/dL 5-25 Calcium 9.1 mg/dL 8.3-10.4 Chloride 99 mmol/L 95-114 CO2 23 mEq/L 22-33 Creat 1.76 mg/dL 0.50-1.50 eGFR 32 mL/min/1.73m2 >59 Glucose 486 called to [place] mg/dL 70-110 Osmo 300 280-295 Potassium 4.6 mmol/L 3.5-5.3 Sodium 134 mmol/L 134-148 Urine beta human chorionic gonadotropin (hCG) measurement - 11/03/16 07:30 Urine beta human chorionic gonadotropin (hCG) measurement NEGATIVE NEGATIVE Capillary blood glucose measurement by glucometer (mass/volume) - 11/03/16 07: 44 Capillary blood glucose measurement by glucometer (mass/volume) 139 mg/dL 70-110 Methicillin resistant Staphylococcus aureus (MRSA) screening culture - 07:52 Methicillin resistant Staphylococcus aureus (MRSA) screening culture NEG NRG Complete blood count (CBC) with automated white blood cell (WBC) differential - 02/17/17 10:39 Blood leukocytes automated count (number/volume) 12.4 10*3/uL 4.3-11.0 Blood erythrocytes automated count (number/volume) 3.53 10*6/uL 4.35-5.85 Venous blood hemoglobin measurement (mass/volume) 11.1 g/dL 11.5-16.0 Blood hematocrit (volume fraction) 33 % 35-52 Automated erythrocyte mean corpuscular volume 93 [foz_us] 80-99 Automated erythrocyte mean corpuscular hemoglobin (mass per erythrocyte) 31 pg 25-34 Automated erythrocyte mean corpuscular hemoglobin concentration measurement ( mass/volume) 34 g/dL 32-36 Automated erythrocyte distribution width ratio 11.9 % 10.0-14.5 Automated blood platelet count (count/volume) 447 10*3/uL 130-400 Automated blood platelet mean volume measurement 9.6 [foz_us] 7.4-10.4 Automated blood neutrophils/100 leukocytes 72 % 42-75 Automated blood lymphocytes/100 leukocytes 19 % 12-44 Blood monocytes/100 leukocytes 6 % 0-12 Automated blood eosinophils/100 leukocytes 3 % 0-10 Automated blood basophils/100 leukocytes 0 % 0-10 Blood neutrophils automated count (number/volume) 8.9 10*3 1.8-7.8 Blood lymphocytes automated count (number/volume) 2.3 10*3 1.0-4.0 Blood monocytes automated count (number/volume) 0.8 10*3 0.0-1.0 Automated eosinophil count 0.4 10*3/uL 0.0-0.3 Automated blood basophil count (count/volume) 0.1 10*3/uL 0.0-0.1 Comprehensive metabolic panel - 02/17/17 10:39 Serum or plasma sodium measurement (moles/volume) 138 mmol/L 135-145 Serum or plasma potassium measurement (moles/volume) 5.4 mmol/L 3.6-5.0 Serum or plasma chloride measurement (moles/volume) 103 mmol/L 98-107 Carbon dioxide 27 mmol/L 21-32 Serum or plasma anion gap determination (moles/volume) 8 mmol/L 5-14 Serum or plasma urea nitrogen measurement (mass/volume) 27 mg/dL 7-18 Serum or plasma creatinine measurement (mass/volume) 1.48 mg/dL 0.60-1.30 Serum or plasma urea nitrogen/creatinine mass ratio 18 NRG Serum or plasma creatinine measurement with calculation of estimated glomerular filtration rate 39 NRG Serum or plasma glucose measurement (mass/volume) 127 mg/dL 70-105 Serum or plasma calcium measurement (mass/volume) 9.3 mg/dL 8.5-10.1 Serum or plasma total bilirubin measurement (mass/volume) 0.4 mg/dL 0.1-1.0 Serum or plasma alkaline phosphatase measurement (enzymatic activity/volume) 135 U/L 40-136 Serum or plasma aspartate aminotransferase measurement (enzymatic activity/ volume) 17 U/L 5-34 Serum or plasma alanine aminotransferase measurement (enzymatic activity/volume ) 17 U/L 0-55 Serum or plasma protein measurement (mass/volume) 7.6 g/dL 6.4-8.2 Serum or plasma albumin measurement (mass/volume) 3.8 g/dL 3.2-4.5 Lipid 1996 panel - 02/17/17 10:39 Serum or plasma triglyceride measurement (mass/volume) 78 mg/dL <150 Serum or plasma cholesterol measurement (mass/volume) 128 mg/dL < 200 Serum or plasma cholesterol in HDL measurement (mass/volume) 36 mg/ dL 40-60 Cholesterol in LDL [mass/volume] in serum or plasma by direct assay 76 mg/dL 1-129 Serum or plasma cholesterol in VLDL measurement (mass/volume) 16 mg/ dL 5-40 THYROID STIMULATING HORMONE - 02/17/17 10:39 THYROID STIMULATING HORMONE 2.73 u[iU]/mL 0.35-4.94 Serum iron and total iron binding capacity panel - 02/17/17 10:39 Serum or plasma iron measurement (mass/volume) 50 % 35- 180 Total iron binding capacity and transferrin saturation measurement 18 % 15-50 Iron binding capacity [mass/volume] in serum or plasma 277 % 280-380 UIBC (unsaturated iron binding capacity) 227 % 55-450 Serum or plasma ferritin measurement (mass/volume) 92.0 % 15.0-150.0 Serum or plasma folate measurement (mass/volume) - 02/17/17 10:39 Serum or plasma folate measurement (mass/volume) 15.6 % 1.5-24.0 Serum iron and total iron binding capacity panel - 02/17/17 10:39 Serum or plasma iron measurement (mass/volume) 50 % 35- 180 Total iron binding capacity and transferrin saturation measurement 18 % 15-50 Iron binding capacity [mass/volume] in serum or plasma 277 % 280-380 UIBC (unsaturated iron binding capacity) 227 % 55-450 Serum or plasma ferritin measurement (mass/volume) 92.0 % 15.0-150.0 CBC with Auto Diff - 04/18/17 10:30 Baso% 0.20 % 0.00-2.50 Eos 0.5 K/uL 0.0-0.7 Eos% 3.5 % 0.0-7.0 Hct 33.0 % 36.0-46.0 Hgb 10.9 g/dL 13.0-15.0 Lym 1.96 K/uL 0.60-3.40 Lym% 15.1 % 10.0-50.0 MCH 31.5 pg 27.0-31.0 MCHC 33.0 g/dL 32.0-36.0 MCV 95.4 fL 80.0-97.0 [place]% 5.9 % 0.0-12.0 MPV 9.9 fL 7.4-10.0 [place]% 75.3 % 37.0-80.0 Plt 439 K/uL 150-400 RBC 3.46 M/uL 3.60-5.00 RDW 11.9 % 11.6-14.8 WBC 12.96 K/uL 5.00-10.00 [place] 9.76 K/uL 2.00-6.90 [place] 0.8 K/uL 0.0-0.9 Baso 0.0 K/uL 0.0-0.2 Iron - 04/18/17 10:30 Iron 108 ug/dL 70-200 Mumps Antibodies, IgM - 04/18/17 10:30 MUMPS ANTIBODIES, IGM <0.80 AU 0.00-0.79 Mumps Antibodies, IgG - 04/18/17 10:30 MUMPS ABS, IGG 75.4 AU/ML IMMUNE >10.9 Automated blood complete blood count (hemogram) panel - 07/28/17 14:33 Blood leukocytes automated count (number/volume) 11.3 10*3/uL 4.3-11.0 Blood erythrocytes automated count (number/volume) 3.62 10*6/uL 4.35-5.85 Venous blood hemoglobin measurement (mass/volume) 11.2 g/dL 11.5-16.0 Blood hematocrit (volume fraction) 33 % 35-52 Automated erythrocyte mean corpuscular volume 91 [foz_us] 80-99 Automated erythrocyte mean corpuscular hemoglobin (mass per erythrocyte) 31 pg 25-34 Automated erythrocyte mean corpuscular hemoglobin concentration measurement ( mass/volume) 34 g/dL 32-36 Automated erythrocyte distribution width ratio 12.7 % 10.0-14.5 Automated blood platelet count (count/volume) 435 10*3/uL 130-400 Automated blood platelet mean volume measurement 9.1 [foz_us] 7.4-10.4 Serum or plasma renal function panel (Na, K, Cl, CO2, BUN, Cr, glucose,Ca, phos , alb) - 07/28/17 14:33 Serum or plasma sodium measurement (moles/volume) 136 mmol/L 135-145 Serum or plasma potassium measurement (moles/volume) 4.5 mmol/L 3.6-5.0 Serum or plasma chloride measurement (moles/volume) 103 mmol/L 98-107 Carbon dioxide 27 mmol/L 21-32 Serum or plasma anion gap determination (moles/volume) 6 mmol/L 5-14 Serum or plasma urea nitrogen measurement (mass/volume) 18 mg/dL 7-18 Serum or plasma creatinine measurement (mass/volume) 1.06 mg/dL 0.60-1.30 Serum or plasma urea nitrogen/creatinine mass ratio 17 NRG Serum or plasma creatinine measurement with calculation of estimated glomerular filtration rate 58 NRG Serum or plasma glucose measurement (mass/volume) 235 mg/dL 70-105 Serum or plasma calcium measurement (mass/volume) 9.3 mg/dL 8.5-10.1 Serum or plasma albumin measurement (mass/volume) 3.7 g/dL 3.2-4.5 Serum or plasma phosphate measurement (mass/volume) 3.2 mg/dL 2.3-4.7 Serum or plasma uric acid measurement (mass/volume) - 07/28/17 14:33 Serum or plasma uric acid measurement (mass/volume) 4.7 mg/dL 2.6-7.2 Magnesium - 07/28/17 14:33 Magnesium 1.8 mg/dL 1.8-2.4 Serum or plasma intact pararthyroid hormone measurement (mass/volume) - 14:33 Serum or plasma intact parathyroid hormone measurement (mass/volume) 42.0 pg/mL 10.0-65.0 Bio-intact parathyroid hormone (PTH) measurement with calcium 9.0 % 8.5-10.5 VITAMIN D 25-HYDROXY - 07/28/17 14:33 VITAMIN D 25-HYDROXY (TOTAL) 42 % 30-100 Complete urinalysis with reflex to culture - 07/28/17 14:35 Urine color determination YELLOW NRG Urine clarity determination CLEAR NRG Urine pH measurement by test strip 6 5-9 Specific gravity of urine by test strip 1.005 1.016- 1.022 Urine protein assay by test strip, semi-quantitative 2+ NEGATIVE Urine glucose detection by automated test strip NEGATIVE NEGATIVE Erythrocytes detection in urine sediment by light microscopy NEGATIVE NEGATIVE Urine ketones detection by automated test strip NEGATIVE NEGATIVE Urine nitrite detection by test strip NEGATIVE NEGATIVE Urine total bilirubin detection by test strip NEGATIVE NEGATIVE Urine urobilinogen measurement by automated test strip (mass/volume) NORMAL NORMAL Urine leukocyte esterase detection by dipstick NEGATIVE NEGATIVE Automated urine sediment erythrocyte count by microscopy (number/high power field) NONE NRG Automated urine sediment leukocyte count by microscopy (number/high power field ) RARE NRG Bacteria detection in urine sediment by light microscopy NEGATIVE NRG Squamous epithelial cells detection in urine sediment by light microscopy 2-5 NRG Crystals detection in urine sediment by light microscopy NONE NRG Casts detection in urine sediment by light microscopy PRESENT NRG Mucus detection in urine sediment by light microscopy NEGATIVE NRG Complete urinalysis with reflex to culture NO NRG Hyaline casts detection in urine sediment by light microscopy 2-5 NRG Urine protein/creatinine mass ratio - 07/28/17 14:35 Urine protein measurement (mass/volume) 17 mg/dL 6-12 Urine creatinine measurement (mass/volume) 21 mg/dL 30- 125 Urine protein/creatinine mass ratio 0.81 NRG Encounters ACCT No. Visit Date/Time Discharge Status Pt. Type Provider Facility Loc./Unit Complaint [id number] 03/21/2018 05:32:00 03/21/2018 13:45:00 DIS Outpatient JOSE M ROBINS MD [facility] PREOP LEFT SHOULDER MANIPULATION [id number] 03/08/2018 09:45:00 03/08/2018 23:59:59 CLS Preadmit JOSE M ROBINS MD [facility] LEFT SHOULDER ADHESIVE CAPSULITIS [id number] 02/23/2018 05:31:00 02/23/2018 12:48:00 DIS Outpatient JOSEM ROBINS MD [facility] PREOP LEFT SHOULDER ADHESIVE CAPSULITIS [id number] 07/28/2017 14:13:00 07/28/2017 23:59:59 CLS Outpatient RELL PATEL DO [facility] LAB N18.3 [id number] 02/17/2017 09:34:00 02/17/2017 23:59:59 CLS Outpatient GLENYS KHAN MD [facility] LAB D64.9 [id number] 02/17/2017 09:24:00 02/17/2017 23:59:59 CLS Outpatient JUAN CARLOS EMERY [facility] LAB E11.65 E66.9 E78.5 [id number] 02/14/2017 13:46:00 02/14/2017 23:59:59 CLS Outpatient GLENYS KHAN MD [facility] LAB I10 N18.3 E10.65 E88.9 [id number] 11/03/2016 07:21:00 11/03/2016 11:05:00 DIS Outpatient JOSE M ORBINS MD [facility] TRIGGER FINGER RIGHT LONG AND SMALL FINGER [id number] 10/28/2016 08:22:00 10/28/2016 08:41:00 DIS Outpatient JOSE M ROBINS MD [facility] PREOP TRIGGER FINGERS [id number] 03/22/2016 09:55:00 03/22/2016 14:18:00 DIS Emergency LASHAY STEIN [facility] ER R ANKLE PAIN/SWELLING [id number] 03/17/2016 06:00:00 03/17/2016 09:24:00 DIS Outpatient JOSE M ROBINS MD [facility] SDC RIGHT CARPAL TUNNEL SYNDROME [id number] 03/10/2016 08:59:00 03/10/2016 09:25:00 DIS Outpatient JOES M ROBINS MD [facility] PREOP RIGHT CARPAL TUNNEL SYNDROME [id number] 10/02/2014 08:35:00 10/02/2014 23:59:59 CLS Outpatient SANDRA YUEN DO [facility] LAB EDENA [id number] 10/02/2014 08:29:00 10/02/2014 23:59:59 CLS Outpatient RELL PATEL DO [facility] LAB DIABETES [id number] 05/03/2014 14:51:00 05/03/2014 23:59:59 CLS Outpatient JUAN ROLLE MD [facility] LAB HTN,CKD,OBESITY [id number] 04/03/2014 09:00:00 04/03/2014 23:59:59 CLS Preadmit RELL PATEL DO [facility] DSME DM 1 [id number] 03/04/2014 09:00:00 04/02/2014 00:01:00 DIS Outpatient RELL PATEL DO [facility] DSME DM 1 [id number] 01/16/2014 10:44:00 02/26/2014 09:35:00 DIS Outpatient JOSE M ROBINS MD [facility] REHAB B HIP TIGHTNESS [id number] 02/22/2014 08:55:00 02/22/2014 23:59:59 CLS Outpatient RELL PATEL DO [facility] LAB DIABETES [id number] 09/12/2013 09:31:00 09/12/2013 23:59:59 CLS Outpatient JOSE M ROBINS MD [facility] RAD BICIPITAL TENDONITS, LABRAL TEAR [id number] 02/15/2013 10:45:00 02/15/2013 23:59:59 CLS Outpatient SANDRA YUEN DO [facility] RAD PAIN IN LT HIP,PAIN IN LT RING FINGER [id number] 01/17/2013 09:05:00 01/24/2013 00:01:00 DIS Outpatient NATACHA MATTSON [facility] REHAB S/P R SHOULDER ADHESIVE CAPSULITIS JOEL [id number] 12/20/2012 09:03:00 12/20/2012 23:59:59 CLS Outpatient MISSAEL YUEN [facility] LAB DIABETES MELLITIS [id number] 12/20/2012 08:50:00 12/20/2012 23:59:59 CLS Outpatient JUAN ROLLE MD [facility] LAB 79.1 NON SPECFICAT FINDINGS IN URINE/BLOOD [id number] 10/25/2012 07:24:00 10/25/2012 14:10:00 DIS Outpatient JOSE M ROBINS MD [facility] RIGHT SHOULDER ADHESIVE CAPSULITIS [id number] 10/20/2012 08:54:00 10/20/2012 23:59:59 CLS Outpatient JOSE M ROBINS MD [facility] PREOP RIGHT SHOULDER ADHESIVE CAPSULITIS [id number] 03/29/2018 10:00:00 PEN Preadmit JOSE M ROBINS MD [facility] ADHESIVE CAPSULITIS LEFT SHOULDER [id number] 06/21/2012 11:42:00 Document Registration [id number] 05/09/2012 11:28:00 Document Registration [id number] 04/26/2012 09:06:00 Document Registration [id number] 03/16/2012 10:31:00 Document Registration [id number] 01/07/2012 09:23:00 Document Registration [id number] 12/20/2011 17:41:00 Document Registration [id number] 12/22/2015 14:23:22 Document Registration [id number] 04/18/2017 10:53:00 04/18/2017 23:59:00 DIS Outpatient Abhi Capellan [id number] 03/29/2016 10:45:00 03/29/2016 23:59:00 DIS Outpatient Yulia Esparza
[2018-03-29] MEDS ORDERED: proPOfol 200 MG/20 ML (DIPRIVAN) VIAL IV ONE (08:26)
[2018-03-29] MEDS ORDERED: LIDOCAINE PF 2% 5 ML (XYLOCAINE) VIAL ONE (08:26)
[2018-03-29] MEDS ORDERED: ONDANSETRON 4 MG/2 ML (SDV) Z0FRAN ONE (08:28)
[2018-03-29 09:00] VITALS: BP 166/90
[2018-03-29] MEDS ORDERED: OXYC-471 PO (09:25)
[2018-03-29 09:30] VITALS: BP_SYST 162; BP_DIAS 104; BP_DIAS 94
--- NOTE | 2018-03-29 15:50 | OPERATIVE REPORT ---
DATE OF SERVICE: 03/29/2018 PREOPERATIVE DIAGNOSIS: Left shoulder adhesive capsulitis. POSTOPERATIVE DIAGNOSIS: Left shoulder adhesive capsulitis. PROCEDURE: Left shoulder manipulation under anesthesia. SURGEON: Jayden Robins MD. WATER ATTENDANT: Jerrell Keating, who assisted throughout the procedure. ANESTHESIA: Monitored anesthesia care by Prabha Garcia CRNA. ESTIMATED BLOOD LOSS: Not applicable. DRAINS: None. COMPLICATIONS: None. POSTOPERATIVE PLAN: Early range of motion. CONDITION: The patient was transferred to the recovery room awake and stable condition. STATEMENT OF MEDICAL NECESSITY: The patient is a 37-year-old right hand dominant female with diabetes mellitus and complaints of left shoulder pain and stiffness. She had tried home exercise program, rest and activity modifications without relief. Due to functional impairment and failure to improve with conservative measures, the patient elected to proceed with surgical intervention. Examination under anesthesia revealed range of motion with forward elevation of 150 degrees, external rotation of 70 degrees and internal rotation of 40 degrees. Post manipulation range of motion was symmetric with forward elevation of 170 degrees, external rotation of 95 degrees and internal rotation of 75 degrees and the humerus moved as a unit. DESCRIPTION OF PROCEDURE: After risks and benefits of the procedure were discussed and questions were answered and informed consent was signed and placed on the chart, the operative site was confirmed in the preoperative holding area and initialed by the surgeon. The patient was transported to the operating room and after adequate levels of monitored anesthesia care were obtained, a timeout was called confirming the operative site. An examination under anesthesia was performed with above findings noted. While stabilizing the scapula, forward elevation was then performed until it was symmetric to the contralateral side. With the scapula stabilized external rotation was performed until symmetrical contralateral side. The arm was then brought into 90 degrees of abduction and the scapula stabilized. The external rotation was performed followed by internal rotation until symmetric to the contralateral side. The humerus moved as a unit. Following the manipulation, the patient was transported to the recovery room awake and in stable condition. Job ID: [id number] DocumentID: [id number] Dictated Date: 03/29/2018 08:36:53 Nib Adjuster Date: 03/29/2018 15:50:15 Dictated By: JAYDEN ROBINS MD
== END 2018-03-29 09:40 | disposition home or self-care (01) ==
LOC: SDC 07:00
PROVIDERS: ATTEND Orthopaedic Surgery
DX: M75.02 Adhesive capsulitis of left shoulder (principal); Z11.2 Encounter for screening for other bacterial diseases; E11.9 Type 2 diabetes mellitus without complications; I25.10 Atherosclerotic heart disease of native coronary artery without angina pectoris; I10 Essential (primary) hypertension; E66.9 Obesity, unspecified; Z79.899 Other long term (current) drug therapy; Z68.36 Body mass index [BMI] 36.0-36.9, adult
CPT/HCPCS: 84703; 87081

== ENCOUNTER 2018-05-17 14:46 | Outpatient (RCR) | payer MEDICARE, MEDICAID ==
--- NOTE | 2018-03-29 14:05 | Anesthesia-General Post-Op ---
MAC Patient Condition Mental Status/LOC: Same as Preop Cardiovascular: Satisfactory Nausea/Vomiting: Absent Respiratory: Satisfactory Pain: Controlled Complications: Absent Post Op Complications Complications None Follow Up Care/Instructions Patient Instructions None needed. Anesthesiology Discharge Order Discharge Order Patient is doing well, no complaints, stable vital signs, no apparent adverse anesthesia problems. No complications reported per nursing. NORRIS THAYER CRNA Mar 29, 2018 14:05
[~2018-05-17 14:46] MED LIST changes: +OXYC-471 PO
== END 2018-05-17 15:09 | disposition home or self-care (01) ==
PROVIDERS: ATTEND Orthopaedic Surgery
DX: M75.02 Adhesive capsulitis of left shoulder (principal)